=== PATIENT | female | born 1965 | race Caucasian/White ===

== ENCOUNTER 2017-05-10 16:20 | Emergency (ER) | payer MEDICAID ==
[~2017-05-10] VITALS: Ht 149.9 cm; Wt 78.6 kg
[2017-05-10 16:56] LABS: HEMATOCRIT 41.6 % (34.6-47.8); HEMOGLOBIN 14.3 g/dL (11.7-16.4); WHITE BLOOD COUNT 11.4 x10^3/uL (3.4-10)
[2017-05-10 17:00] LABS: BLOOD UREA NITROGEN 14 mg/dL (7-18)
[2017-05-10 19:34] VITALS: BP 134/65
== END 2017-05-10 20:15 | disposition home or self-care (01) ==
LOC: ED 20:11
DX: M25.552 Pain in left hip (principal); M79.652 Pain in left thigh; I10 Essential (primary) hypertension; E78.5 Hyperlipidemia, unspecified; Z98.51 Tubal ligation status
CPT/HCPCS: 36415; 80048; 81003; 82040; 85025; 99285